=== PATIENT | male | born 1990 | race Caucasian/White ===

== ENCOUNTER 2024-06-06 21:11 | Emergency (ER) | payer OTHER ==
[2024-06-06] VITALS (9 sets, daily range): BP systolic 88–127; BP diastolic 55–74
[~2024-06-06] VITALS: Ht 185.4 cm; Wt 136.0 kg
[2024-06-06] MEDS ORDERED: SODIUM CHLORIDE 0.9% 1,000 ML IV STA (21:20)
[2024-06-06] MEDS ORDERED: ISOVUE-300 (Iopamidol) 100 ML SDV IV ONE (21:20)
[2024-06-06] MEDS ORDERED: PROMETHAZINE HCL 25 MG/ML AMP IV ONE (21:25)
[2024-06-06] MEDS ORDERED: KETOROLAC TROMETHAMINE 30 MG/ML SDV IV ONE (21:25)
[2024-06-06] MEDS ORDERED: DiphenhydrAMINE HCL 50 MG/ML SDV IV ONE (21:25)
[2024-06-06 21:42] LABS: BASO% 0.2 % (0-3); EOS% 0.5 % (0-8); HEMATOCRIT 50.2 % (39.0-50.0); HEMOGLOBIN 16.6 g/dl (14.0-18.0); IMMATURE GRANULOCYTES 0.2 % (0.0-5.0); LYMPH% 3.1 % (15-41); MEAN CELL VOLUME 89.6 fL CALC (80.0-100.0); MEAN CORPUSCULAR HGB 29.6 pG CALC (26.0-32.0); MEAN CORPUSCULAR HGB CONC 33.1 g/dL CAL (32.0-36.0); NEUT# 10.1 thou/uL (1.82-7.42); RED BLOOD COUNT 5.6 mill/uL (4.70-6.10)
[2024-06-06 21:52] LABS: ALBUMIN 5.2 g/dL (3.2-5.0); ALKALINE PHOSPHATASE 65 u/l (38-126); ANION GAP 21 (6-22 (CALC)); BILIRUBIN, TOTAL 1.7 mg/dL (0.2-1.3); BUN 16 mg/dL (9-20); BUN/CREATININE RATIO 15 (12-20 (CALC)); CARBON DIOXIDE 21 mmol/l (22-30); CHLORIDE 102 mmol/l (95-108); CREATININE 1.1 mg/dL (0.7-1.3); ESTIMATED GFR 90 ML/MIN (>=90 (CALC)); LIPASE 729 u/l (23-300); POTASSIUM 4.4 mmol/l (3.5-5.1); SGOT/AST 46 u/l (17-59); SODIUM 140 mmol/l (137-146)
[2024-06-06 21:54] LABS: D-DIMER 0.8 mg/L (0.19-0.60)
[2024-06-06] MEDS ORDERED: Iopamidol 370 (Isovue) 76% 100 ML SDV IV ONE (22:00)
[2024-06-06 22:03] LABS: ACT PARTIAL THROMBO TIME 25.2 SECONDS (20.0-32.5)
[2024-06-06 22:04] LABS: PROTHROMBIN TIME 11.1 SECONDS (9.0-12.5)
[2024-06-06] MEDS ORDERED: LACTATED RINGER'S 1,000 ML IV ONE (22:35)
[2024-06-06] MEDS ORDERED: PROCHLORPERAZINE EDISYLATE 10 MG/2 ML SDV IV ONE (23:30)
[2024-06-06] MEDS ORDERED: ACETAMINOPHEN 325 MG/TAB PO PRN (23:35)
[2024-06-06] MEDS ORDERED: SODIUM CHLORIDE 0.9% 1,000 ML IV PRN (23:35)
[2024-06-06] MEDS ORDERED: MORPHINE SULFATE 4 MG/ML VIAL IV PRN (23:35)
[2024-06-06] MEDS ORDERED: ONDANSETRON HCl 4 MG/2 ML SDV IV PRN (23:35)
[2024-06-06] MEDS ORDERED: IBUPROFEN 800 MG/TAB PO PRN (23:35)
[2024-06-06] MEDS ORDERED: KETOROLAC TROMETHAMINE 30 MG/ML SDV IV PRN (23:35)
[2024-06-06] MEDS ORDERED: PROCHLORPERAZINE EDISYLATE 10 MG/2 ML SDV IV PRN (23:35)
[2024-06-06] MEDS ORDERED: ALUM & MAG HYDROX-SIMETHICONE 30 ML PO PRN (23:35)
[2024-06-06] MEDS ORDERED: ONDANSETRON 4 MG/TAB ODT PO PRN (23:35)
[2024-06-06] MEDS ORDERED: FAMOTIDINE 10MG/ML 2ML SDV IV PRN (23:35)
[2024-06-06] MEDS ORDERED: Polyethylene Glycol 3350 17 GM/PKT PO PRN (23:35)
[2024-06-06 23:40] LABS: URINE BILIRUBIN - DIPSTICK Negative (NEGATIVE); URINE BLOOD DIPSTICK Negative (NEGATIVE); URINE GLUCOSE - DIPSTICK Negative (NEGATIVE); URINE KETONE 80 mg/dL (NEGATIVE); URINE LEUK ESTERASE Negative (NEGATIVE); URINE NITRITE - DIPSTICK Negative (Negative); URINE PROTEIN - DIPSTICK Trace mg/dL (NEG-TRACE); URINE SPECIFIC GRAVITY 1.015; URINE UROBILINOGEN - DIPSTICK 0.2 E.U./dL (0.2)
[2024-06-06] MEDS ORDERED: TRAZODONE50 MG PO (23:40)
[2024-06-06 23:41] LABS: URINE COLOR Yellow
[2024-06-06] MEDS ORDERED: PROZAC40 MG PO (23:41)
[2024-06-06] MEDS ORDERED: ADDERALL XR20 MG PO (23:42)
[2024-06-07 00:10] VITALS: BP 105/55
== END 2024-06-07 00:05 | disposition left against medical advice (07) | DRG 440 ==
LOC: ED 21:11 → ED-I 23:17 → ED 06-07 00:05
PROVIDERS: Family Medicine
DX: K85.90 Acute pancreatitis without necrosis or infection, unspecified (principal); Z20.822 Contact with and (suspected) exposure to COVID-19; Z53.29 Procedure and treatment not carried out because of patient's decision for other reasons
CPT/HCPCS: Q9967